=== PATIENT | male | born 1950 | race Caucasian/White ===

== ENCOUNTER 2016-05-31 06:59 | Day surgery (SDC) | payer MEDICARE, BC ==
[2016-05-31] MEDS ORDERED: Lactated Ringers 1,000 ML IV SCH (07:30)
[2016-05-31] MEDS ORDERED: fentaNYL 100 MCG/2 ML SDV ONE (07:55)
[2016-05-31] MEDS ORDERED: Midazolam 1 MG/ML 2 ML SDV ONE (07:55)
[2016-05-31] MEDS ORDERED: Propofol 200 MG/20 ML SDV ONE ×2 (07:55→08:32)
[2016-05-31 09:52] VITALS: BP 109/67
--- NOTE | 2016-05-31 12:48 | OR ---
DATE OF PROCEDURE: 05/31/2016 PREOPERATIVE DIAGNOSES: Nausea, history of colon polyps. POSTOPERATIVE DIAGNOSES: Nausea, history of colon polyps, small gastric polyps , right and left-sided colonic diverticulosis, small transverse colon polyp. PROCEDURE: 1. Esophagogastroduodenoscopy with biopsy resection of small gastric polyp. 2. Colonoscopy to the cecum with biopsy resection of small transverse colon polyp. ANESTHESIA: IV anesthesia with monitored anesthesia care. INDICATION: This 66-year-old white male is referred for upper and lower endoscopy. The indication for the upper endoscopy is nausea. The indication for the colonoscopy is a history of colon polyps. He says his last colonoscopic exam was done about nine years ago. I counseled him for the procedure including risks and alternatives, and he gave his informed consent to proceed. DESCRIPTION OF PROCEDURE: The patient was placed in the left lateral decubitus position. IV anesthesia was administered by the Anesthesia Service. Time-out was held. The flexible video Olympus upper endoscope was passed through his mouth, down his esophagus, and into his stomach. The scope was easily passed through the pylorus, into the duodenum , reaching its third portion. The scope was then slowly withdrawn examining the mucosa throughout. The duodenal mucosa appeared unremarkable. The scope was brought up through the pylorus. The antrum appeared unremarkable. The scope was retroflexed. He did have a small hiatal hernia seen. The scope was straightened in the main body of the stomach. We saw a small polyp, which was removed with the biopsy forceps. The scope was brought up through the GE junction, which other than the small hiatal hernia appeared unremarkable. The scope was then brought up through the unremarkable-appearing esophagus and was removed. Next, a rectal exam was performed, which was unremarkable. The flexible video Olympus colonoscope was introduced through his anus, up his rectum, out his colon, all the way to the cecum. We saw both right and left-sided diverticula. There was no bleeding nor inflammation associated with any of them. Once the cecum was reached, the scope was slowly withdrawn, examining the mucosa throughout. No additional mucosal abnormalities were noted until we reached the transverse colon. Here, we saw a small polyp, which was removed with the biopsy forceps. The scope was withdrawn further with no other additional lesions noted. The scope was retroflexed in the rectum with the distal rectum appearing unremarkable. The scope was straightened and removed. He tolerated the procedure well. Pavel Yang MD /[id number] MTDD
== END 2016-05-31 09:52 | disposition home or self-care (01) ==
LOC: JP.SDS 06:59
PROVIDERS: ATTEND Surgery
DX: Z12.11 Encounter for screening for malignant neoplasm of colon (principal); D12.3 Benign neoplasm of transverse colon; K29.50 Unspecified chronic gastritis without bleeding; K57.30 Diverticulosis of large intestine without perforation or abscess without bleeding; K44.9 Diaphragmatic hernia without obstruction or gangrene; Z88.8 Allergy status to other drugs, medicaments and biological substances
CPT/HCPCS: 43239; 45380; J2250; J2704; J3010; J7120; 88305; 88342

== ENCOUNTER 2019-06-04 07:15 | Day surgery (SDC) | payer BC, MEDICARE ==
[2019-06-04] MEDS ORDERED: fentaNYL 100 MCG/2 ML SDV ONE (07:19)
[2019-06-04] MEDS ORDERED: Midazolam 1 MG/ML 2 ML SDV ONE (07:19)
[2019-06-04] MEDS ORDERED: Propofol 200 MG/20 ML SDV ONE (07:19)
[2019-06-04] MEDS ORDERED: Sodium Chloride 0.9% 1,000 ML IV SCH (07:30)
[2019-06-04 10:44] VITALS: BP 99/69; PULSE 84
--- NOTE | 2019-06-04 13:48 | OR ---
DATE OF PROCEDURE: 06/04/2019 SURGEON: Portillo Castañeda MD PROCEDURE: Colonoscopy. FINDINGS: Diverticulosis, mild. COMPLICATIONS: None. BOTTLE MACHINE OPERATOR: None. PREOPERATIVE DIAGNOSIS: Screening colonoscopy. POSTOPERATIVE DIAGNOSIS: Screening colonoscopy. RISKS: Risks, benefits, alternatives, and limitations including, but not limited to infection, bleeding, and perforation were explained to the patient, who wished to proceed. PROCEDURE IN DETAIL: The patient was placed in left lateral decubitus position. Digital rectal exam was performed without any abnormality. Scope was introduced and advanced atraumatically up to the ileocecal valve. Scope was brought back through the ascending, transverse, descending colon, and retroflexed. No evidence of old or new blood. No masses. No polyps. No other abnormalities. The patient tolerated the procedure well. Portillo Castañeda MD /[id number]
== END 2019-06-04 09:45 | disposition home or self-care (01) ==
LOC: JP.SDS 07:15
PROVIDERS: ATTEND Surgery
DX: Z12.11 Encounter for screening for malignant neoplasm of colon (principal); K57.30 Diverticulosis of large intestine without perforation or abscess without bleeding
CPT/HCPCS: G0121; J2250; J2704; J3010; J7030

== ENCOUNTER 2019-09-07 20:43 | Emergency (ER) | payer MEDICARE ==
[2019-09-07 20:57] VITALS: BP 185/98; PULSE 85
--- NOTE | 2019-09-07 21:08 | EDM.PDOC ---
ED HPI GENERAL MEDICAL PROBLEM - General Chief Complaint: Respiratory Problem Stated Complaint: TROUBLE BREATHING Time Seen by Provider: 09/07/19 21:05 Source of Information: Reports: Patient, Old Records, RN History Limitations: Reports: No Limitations - History of Present Illness INITIAL COMMENTS - FREE TEXT/NARRATIVE: 69 yo male presents with several days of progressive SOB associated with some wheezing and chest tightness. No fever. Cough occasionally productive of small volumes of yellow sputum. Has been worked up by the clinic and given antibiotics which helped just a little initially, but not now. Had a CT of his abd/pelvis and chest yesterday per the clinic that showed possible prostate CA and mild chronic lung changes. Quit smoking in the 80's after about a 25 pack yr hx of smoking. Onset: Gradual Duration: Week(s): (2+), Getting Worse Location: Reports: Chest Quality: Reports: Other (mild tightness) Severity: Mild Improves with: Reports: None Worsens with: Reports: Other (time?) Context: Reports: Other (See HPI) Associated Symptoms: Reports: Cough, Shortness of Breath. Denies: Fever/Chills Treatments DESIGN SUPERVISOR: Reports: Other (see below) (antibiotic) - Related Data Allergies Allergy/AdvReac Type Severity Reaction Status Date / Time amlodipine [From Norvasc] AdvReac Nausea Verified 09/07/19 20:53 metoprolol [From Toprol XL] AdvReac Nausea Verified 09/07/19 20:53 Home Meds: Home Meds Citalopram Hydrobromide [Celexa] 10 mg PO DAILY 05/31/19 [History] Folic Acid 1 mg PO DAILY 05/31/19 [History] Losartan [Cozaar] 25 mg PO DAILY 05/31/19 [History] Albuterol Sulfate [Albuterol Sulfate Hfa] 1 puff INH Q4H PRN 09/07/19 [History] Albuterol/Ipratropium [DuoNeb 3.0-0.5 MG/3 ML] 3 ml NEB QID PRN #60 neb 09/07/19 [Rx] Amoxicillin/Potassium Clav [Amox Tr-K Clv 875-125 mg Tab] 1 each PO BID 09/07/19 [History] Tamsulosin HCl 1 cap PO DAILY 09/07/19 [History] predniSONE [Prednisone] 20 mg PO BID #12 tablet 09/07/19 [Rx] Past Medical History HEENT History: Reports: Impaired Vision Cardiovascular History: Reports: Hypertension Gastrointestinal History: Reports: Colon Polyp Genitourinary History: Reports: Prostate Disorder Musculoskeletal History: Reports: Arthritis, Fracture Neurological History: Reports: Migraines Psychiatric History: Reports: Anxiety, Depression Dermatologic History: Reports: None - Infectious Disease History Infectious Disease History: Reports: Measles, Mumps - Past Surgical History GI Surgical History: Reports: Colonoscopy Male Surgical History: Reports: Vasectomy Neurological Surgical History: Reports: Scoliosis Musculoskeletal Surgical History: Reports: Arthroscopic Knee, Carpal Tunnel, Other (See Below) Other Musculoskeletal Surgeries/Procedures:: left knee bursa removed Social & Family History - Family History Family Medical History: Noncontributory - Tobacco Use Smoking Status *Q: Former Smoker Used Tobacco, but Quit: Yes Month/Year Tobacco Last Used: 1980 Tobacco Use Comment: quit smoking in 1980, uses occasional snuff - Caffeine Use Caffeine Use: Reports: Coffee - Alcohol Use Days Per Week of Alcohol Use: 7 Number of Drinks Per Day: 3 Total Drinks Per Week: 21 - Recreational Drug Use Recreational Drug Use: No ED ROS GENERAL - Review of Systems Review Of Systems: See Below Constitutional: Reports: No Symptoms HEENT: Reports: No Symptoms Respiratory: Reports: Shortness of Breath, Wheezing, Cough, Sputum (minimal yellow) Cardiovascular: Reports: No Symptoms GI/Abdominal: Reports: No Symptoms : Reports: No Symptoms Musculoskeletal: Reports: No Symptoms Skin: Reports: No Symptoms Neurological: Reports: No Symptoms ED EXAM, GENERAL - Physical Exam Exam: See Below Exam Limited By: No Limitations General Appearance: Alert, WD/WN, No Apparent Distress Eye Exam: Bilateral Eye: Normal Inspection Ears: Normal External Exam, Normal Canal, Hearing Grossly Normal, Normal TMs Ear Exam: Bilateral Ear: Auricle Normal, Canal Normal, TM normal Nose: Normal Inspection, No Blood Throat/Mouth: Normal Inspection, Normal Lips, Normal Oropharynx, Normal Voice, No Airway Compromise Head: Atraumatic, Normocephalic Neck: Normal Inspection Respiratory/Chest: No Respiratory Distress, No Accessory Muscle Use, Wheezing, Other (mild tachypnea). No: Lungs Clear, Normal Breath Sounds, Respiratory Distress, Crackles Cardiovascular: Regular Rate, Rhythm, No Edema Extremities: Normal Inspection, Normal Range of Motion, Non-Tender, No Pedal Edema Neurological: Alert, Oriented, CN II-XII Intact, Normal Cognition, No Motor/Sensory Deficits Psychiatric: Normal Affect, Normal Mood Skin Exam: Warm, Dry, Intact, Normal Color, No Rash Course - Vital Signs Last Recorded V/S: Last Vital Signs Temp 35.4 C L 09/07/19 20:55 Pulse 85 09/07/19 20:55 Resp 24 H 09/07/19 20:55 BP 185/98 H 09/07/19 20:55 Pulse Ox 95 09/07/19 20:55 - Orders/Labs/Meds Orders: Active Orders 24 hr Category Date Time Status RT Aerosol Therapy [RC] ASDIRECTED Care 09/07/19 21:10 Active Meds: Medications Discontinued Medications Generic Name Dose Route Start Last Admin Trade Name Mg PRN Reason Stop Dose Admin Albuterol/Ipratropium 3 ml 09/07/19 21:10 09/07/19 21:25 Duoneb 3.0-0.5 Mg/3 Ml NEB 09/07/19 21:11 3 ml ONETIME ONE Administration - Re-Assessments/Exams Free Text/Narrative Re-Assessment/Exam: 09/07/19 21:46 Much better after Duoneb Departure - Departure Time of Disposition: 21:55 Disposition: Home, Self-Care 01 Condition: Fair Clinical Impression: Bronchospasm - Discharge Information *PRESCRIPTION DRUG MONITORING PROGRAM REVIEWED*: Not Applicable *COPY OF PRESCRIPTION DRUG MONITORING REPORT IN PATIENT EDGARDO: Not Applicable Instructions: Bronchospasm, Adult, [id number] Referrals: Tomas Gongora FORENSIC INVESTIGATOR [Primary Care Provider] - Forms: ED Department Discharge Additional Instructions: Use prednisone and Duonebs as directed. You may continue the antibiotic, but stop after you have taken this med for 7 days. Recheck in the clinic in a week. Return if worse. Avoid smoke exposure. Use cetirizine 10 mg daily as needed for sneezing and nasal congestion. Sepsis Event Note (ED) - Evaluation Sepsis Screening Result: No Definite Risk - Focused Exam Vital Signs: Vital Signs Temp Pulse Resp BP Pulse Ox 09/07/19 20:55 35.4 C L 85 24 H 185/98 H 95 - My Orders Last 24 Hours: My Active Orders 09/07/19 21:10 RT Aerosol Therapy [RC] ASDIRECTED - Assessment/Plan Last 24 Hours: My Active Orders 09/07/19 21:10 RT Aerosol Therapy [RC] ASDIRECTED
[2019-09-07] MEDS ORDERED: Albuterol/Ipratropium 3.0-0.5 MG/3 ML Neb Soln NEB ONE (21:10)
[2019-09-07] MEDS ORDERED: predniSONE 20 MG Tab PO STA (21:49)
== END 2019-09-07 22:15 | disposition home or self-care (01) ==
LOC: JP.ED 20:43
DX: J98.01 Acute bronchospasm (principal); I10 Essential (primary) hypertension; F41.9 Anxiety disorder, unspecified; F32.9 Major depressive disorder, single episode, unspecified; Z87.891 Personal history of nicotine dependence; Z79.899 Other long term (current) drug therapy; Z88.8 Allergy status to other drugs, medicaments and biological substances
CPT/HCPCS: 94640; 99283; 99284; J7512; J7620-GY

== ENCOUNTER 2021-05-02 22:27 | Emergency (ER) | payer MEDICARE ==
[2021-05-02 23:44] LABS: CORONAVIRUS COVID-19 NAA POSITIVE (NEGATIVE)
[2021-05-03] MEDS ORDERED: Furosemide 40 MG/4 ML VIAL IVPUSH ONE (00:03)
[2021-05-03] MEDS ORDERED: Amiodarone 200 MG Tab PO ONE (00:28)
[2021-05-03] MEDS ORDERED: LORazepam 2 MG/ML SDV IVPUSH STA (01:09)
[2021-05-03] MEDS ORDERED: Dexamethasone 4 MG/ML SDV IVPUSH STA (01:09)
[2021-05-03] MEDS ORDERED: Amiodarone 150 MG/3 ML SDV IV ONE (01:27)
[2021-05-03] MEDS ORDERED: Dextrose 5% in Water 250 ML ONE (01:43)
[2021-05-03 02:42] VITALS: BP 109/59; PULSE 129
[2021-05-03] MEDS ORDERED: cefTRIAXone 2 GM, Lidocaine 1% 4.2 ML IM ONE ×2 (03:06)
[2021-05-03] MEDS: cefTRIAXone 1 GM Vial ONE ×2 (03:16→03:18)
== END 2021-05-03 03:15 ==
LOC: JP.ED 22:27
DX: U07.1 COVID-19 (principal); I48.20 Chronic atrial fibrillation, unspecified; I11.0 Hypertensive heart disease with heart failure; I50.41 Acute combined systolic (congestive) and diastolic (congestive) heart failure; R06.02 Shortness of breath; D68.9 Coagulation defect, unspecified; Z79.01 Long term (current) use of anticoagulants; Z79.899 Other long term (current) drug therapy; Z88.8 Allergy status to other drugs, medicaments and biological substances
CPT/HCPCS: 0241U; 36415; 71045; 80053; 82803; 83605; 83735; 83880; 84484; 85025; 86140; 93005; 93010; 96372; 96374; 96375; 99285; A9270; J0282; J0696; J1100; J1940; J2060; J7060

== ENCOUNTER 2024-04-17 13:34 | Inpatient (IN) | payer MEDICARE ==
[2024-04-17] MEDS ORDERED: Ondansetron 4 MG/2 ML SDV IV PRN (14:10)
[2024-04-17] MEDS ORDERED: LORazepam 2 MG/ML SDV IV PRN (14:10)
[2024-04-17] MEDS ORDERED: Albuterol 0.083% 2.5 MG/3 ML Neb Soln NEB PRN (14:10)
[2024-04-17] MEDS ORDERED: Polyethylene Glycol 3350 Powder 17 GM Packet PO PRN (14:10)
[2024-04-17] MEDS ORDERED: Sodium Chloride 0.9% 10 ML Syringe FLUSH PRN (14:10)
[2024-04-17] MEDS ORDERED: Acetaminophen 325 MG Tab PO PRN (14:10)
[2024-04-17] MEDS ORDERED: LORazepam 2 MG/ML SDV IM SCH (14:15)
[2024-04-17] MEDS ORDERED: Albuterol/Ipratropium 3.0-0.5 MG/3 ML Neb Soln NEB PRN (14:27)
[2024-04-17] MEDS: Iopamidol 612 MG/ML 100 ML Bottle IV PRN (15:07)
[2024-04-17] MEDS: Sodium Chloride 0.9% 80 ML IV ONE (15:07)
[2024-04-17] MEDS: Sodium Chloride 0.9% 10 ML Syringe FLUSH PRN (15:07)
[2024-04-17] MEDS: Sodium Chloride 0.9% 1,000 ML IV SCH (15:47)
[2024-04-17] MEDS: Montelukast 10 MG Tab PO SCH (15:59)
[2024-04-17] MEDS: FLUoxetine 20 MG Cap PO SCH (15:59)
[2024-04-17] MEDS: Folic Acid 1 MG Tab PO SCH (15:59)
[2024-04-17] MEDS: Gabapentin 400 MG Cap PO ONE (16:00)
[2024-04-17] MEDS: Pantoprazole 40 MG Tab.CR PO SCH (16:02)
[2024-04-17] MEDS: Multivitamins with Iron Tab.Chew CHEW SCH (16:07)
[2024-04-17] MEDS ORDERED: Montelukast 10 MG Tab PO SCH (17:00)
[2024-04-17] MEDS ORDERED: LORazepam 1 MG Tab PO PRN (17:07)
[2024-04-17] MEDS: LORazepam 2 MG/ML SDV IV SCH (18:42)
[2024-04-17] MEDS: Thiamine 100 MG Tab PO SCH (21:35)
[2024-04-17] MEDS: Apixaban 5 MG Tab PO SCH (21:36)
[2024-04-17] MEDS: LORazepam 1 MG Tab PO PRN (21:36)
[2024-04-17] MEDS: Gabapentin 300 MG Cap PO SCH (21:36)
[2024-04-18 06:00] LABS: HEMOGLOBIN 10.7 g/dL (12.9-16.9); MEAN CORPUSCULAR HEMOGLOBIN 35.7 pg (31.6-35.5); MEAN CORPUSCULAR HGB CONC 35.7 g/dL (31.6-35.5); WHITE BLOOD CELL COUNT,WBC 3.9 K/uL (3.2-11.0)
[2024-04-18 06:22] LABS: A/G RATIO 1.1 (1.2-2.2); ALANINE AMINOTRANSFERASE,ALT 144 U/L (12-78); ALBUMIN 2.8 g/dL (3.4-5.0); ALKALINE PHOSPHATASE 72 U/L (46-116); ANION GAP 13.3 mmol/L (5.0-14.0); ASPARTATE AMNIOTRANSFERASE,AST 115 U/L (15-37); BILIRUBIN DIRECT 0.67 mg/dL (0.0-0.2); BILIRUBIN TOTAL 1.8 mg/dL (0.2-1.0); BLOOD UREA NITROGEN,BUN 20 mg/dL (7-18); CALCIUM 7.6 mg/dL (8.5-10.1); CARBON DIOXIDE,CO2 27 mmol/L (21-32); CHLORIDE,CL 101 mmol/L (100-108); CREATININE 0.9 mg/dL (0.8-1.3); EST CRCL DRUG DOSING (CG) 72.53 mL/min; ESTIMATED GFR 90 mL/min (>60); GLUCOSE RANDOM 86 mg/dL (74-106); MAGNESIUM 1.2 mg/dL (1.8-2.4); POTASSIUM,K 3.3 mmol/L (3.6-5.2); PROTEIN TOTAL,TP 5.4 g/dL (6.4-8.2); SODIUM,NA 138 mmol/L (140-148)
[2024-04-18] MEDS: Metoprolol Tartrate 25 MG Tab PO SCH (08:22)
[2024-04-18] MEDS: Magnesium Oxide 400 MG Tab PO SCH ×2 (08:23→08:32)
[2024-04-18] MEDS: Losartan 25 MG Tab PO SCH (08:23)
[2024-04-18] MEDS: Potassium Chloride 20 MEQ Tab.ER PO ONE (08:26)
[2024-04-18] MEDS ORDERED: Non-Formulary Medication 1 Each (Magnesium Oxide [Magnesium] 400 MG Capsule) PO SCH (09:00)
[2024-04-18] MEDS ORDERED: MONTELUKAST SODIUM 4 MG PO SCH (09:00)
[2024-04-18] MEDS: Magnesium Sulfate/Water Premix 2 GM in Premix Bag 1 BAG IV SCH (09:17)
[2024-04-18] MEDS: LORazepam 1 MG Tab PO PRN (12:37)
[2024-04-18] MEDS: LORazepam 2 MG/ML SDV IVPUSH ONE (16:31)
[2024-04-18] MEDS: Nicotine 14 MG/24 Hr Patch TRDERM SCH (16:51)
[2024-04-18] MEDS: Nicotine Polacrilex 2 MG Gum CHEW PRN (17:08)
[2024-04-18] MEDS ORDERED: PHENobarbitaL sodium 260 MG in Sodium Chloride 0.9% 100 ML IV PRN (17:30)
[2024-04-18] MEDS: PHENobarbitaL sodium 260 MG in Sodium Chloride 0.9% 100 ML IV ONE (17:33)
[2024-04-18] MEDS: LORazepam 2 MG/ML SDV IV PRN (17:51)
[2024-04-18] MEDS: Sodium Chloride 0.9% 1,000 ML IV SCH (19:00)
[2024-04-18] MEDS: PHENobarbital Sodium 65 MG/ML SDV IVPUSH PRN (20:47)
[2024-04-19 05:57] LABS: HEMATOCRIT 32.5 % (38.4-49.7); HEMOGLOBIN 11.3 g/dL (12.9-16.9); MEAN CORPUSCULAR HEMOGLOBIN 35.2 pg (31.6-35.5); MEAN CORPUSCULAR HGB CONC 34.8 g/dL (31.6-35.5); MEAN CORPUSCULAR VOLUME 101.2 fL (81.4-99.0); RED BLOOD CELL COUNT 3.21 M/uL (4.14-5.76); WHITE BLOOD CELL COUNT,WBC 4.5 K/uL (3.2-11.0)
[2024-04-19 06:17] LABS: ALANINE AMINOTRANSFERASE,ALT 120 U/L (12-78); ALBUMIN 2.9 g/dL (3.4-5.0); ALKALINE PHOSPHATASE 80 U/L (46-116); ASPARTATE AMNIOTRANSFERASE,AST 81 U/L (15-37); BLOOD UREA NITROGEN,BUN 17 mg/dL (7-18); CALCIUM 7.7 mg/dL (8.5-10.1); CARBON DIOXIDE,CO2 28 mmol/L (21-32); CHLORIDE,CL 104 mmol/L (100-108); CREATININE 0.9 mg/dL (0.8-1.3); EST CRCL DRUG DOSING (CG) 74.53 mL/min; ESTIMATED GFR 90 mL/min (>60); GLUCOSE RANDOM 95 mg/dL (74-106); MAGNESIUM 1.8 mg/dL (1.8-2.4); POTASSIUM,K 3.5 mmol/L (3.6-5.2); PROTEIN TOTAL,TP 5.7 g/dL (6.4-8.2); SODIUM,NA 140 mmol/L (140-148)
[2024-04-19 06:19] LABS: ANION GAP 11.5 mmol/L (5.0-14.0)
[2024-04-19] MEDS: Potassium Chloride 20 MEQ Tab.ER PO ONE ×2 (08:55→16:28)
[2024-04-19 18:20] LABS: ALPHA-1-ANTITRYPSIN 117 mg/dL (90-200)
[2024-04-19 18:34] LABS: HEPATITIS BE ANTIGEN Negative (Negative)
[2024-04-19 19:11] LABS: HEPATITIS B SURFACE ANTIBODY <3.10 IU/L
[2024-04-19 19:52] LABS: HEPATITIS B CORE ANTIBODY,IGM Negative (Negative)
[2024-04-19 19:57] LABS: HEPATITIS A ANTIBODY, IGM Negative (Negative); HEPATITIS B CORE ANTIBODY, IGM Negative (Negative); HEPATITIS B SURFACE ANTIGEN Negative (Negative); HEPATITIS C AB CIA INTERP Negative (Negative); HEPATITIS C ANTIBODY CIA INDEX 0.15 IV
[2024-04-19 20:27] LABS: CERULOPLASMIN 14 mg/dL (15-30)
[2024-04-19 21:20] LABS: ANTI-NUCLEAR AB ANA,IGG ELISA None Detected (None Detected)
[2024-04-19] MEDS: Gabapentin 400 MG Cap PO SCH (21:42)
[2024-04-20 06:02] LABS: HEMATOCRIT 34.5 % (38.4-49.7); HEMOGLOBIN 12.2 g/dL (12.9-16.9); MEAN CORPUSCULAR HEMOGLOBIN 36.3 pg (31.6-35.5); MEAN CORPUSCULAR HGB CONC 35.4 g/dL (31.6-35.5); MEAN CORPUSCULAR VOLUME 102.7 fL (81.4-99.0); RED BLOOD CELL COUNT 3.36 M/uL (4.14-5.76); WHITE BLOOD CELL COUNT,WBC 5.9 K/uL (3.2-11.0)
[2024-04-20 06:22] LABS: A/G RATIO 0.9 (1.2-2.2); ALANINE AMINOTRANSFERASE,ALT 106 U/L (12-78); ALBUMIN 2.9 g/dL (3.4-5.0); ALKALINE PHOSPHATASE 87 U/L (46-116); ASPARTATE AMNIOTRANSFERASE,AST 62 U/L (15-37); BLOOD UREA NITROGEN,BUN 12 mg/dL (7-18); CALCIUM 8.3 mg/dL (8.5-10.1); CARBON DIOXIDE,CO2 30 mmol/L (21-32); CHLORIDE,CL 102 mmol/L (100-108); CREATININE 0.9 mg/dL (0.8-1.3); EST CRCL DRUG DOSING (CG) 70.13 mL/min; ESTIMATED GFR 90 mL/min (>60); GLUCOSE RANDOM 89 mg/dL (74-106); POTASSIUM,K 4.2 mmol/L (3.6-5.2); PROTEIN TOTAL,TP 6.1 g/dL (6.4-8.2); SODIUM,NA 138 mmol/L (140-148)
[2024-04-20 06:23] LABS: ANION GAP 10.2 mmol/L (5.0-14.0)
[2024-04-20 10:45] LABS: FACTIN SMOOTH MUSCLE,IGG ELISA 7 Units (0-19); MITOCHONDRIAL (M2) AB,IGG 4.5 Units (0.0-24.9)
[2024-04-20] MEDS ORDERED: Metoprolol Tartrate 5 MG/5 ML SDV IVPUSH PRN (18:57)
[2024-04-20] MEDS: Sodium Chloride 0.9% 1,000 ML IV SCH (20:11)
[2024-04-21] MEDS: Gabapentin 400 MG Cap PO SCH (00:33)
[2024-04-21 06:15] LABS: CALCIUM 8.1 mg/dL (8.5-10.1); CREATININE 0.9 mg/dL (0.8-1.3); EST CRCL DRUG DOSING (CG) 74.53 mL/min; POTASSIUM,K 4.2 mmol/L (3.6-5.2)
[2024-04-21 06:22] LABS: ANION GAP 13.2 mmol/L (5.0-14.0)
[2024-04-21] MEDS: Gabapentin 300 MG Cap PO SCH (22:55)
[2024-04-23] MEDS: Gadoteridol 279.3 MG/ML 20 ML SDV IV SCH (11:04)
[2024-04-24 08:12] LABS: HEMATOCRIT 34.5 % (38.4-49.7); HEMOGLOBIN 11.9 g/dL (12.9-16.9); MEAN CORPUSCULAR HEMOGLOBIN 35.2 pg (31.6-35.5); MEAN CORPUSCULAR HGB CONC 34.5 g/dL (31.6-35.5); MEAN CORPUSCULAR VOLUME 102.1 fL (81.4-99.0); RED BLOOD CELL COUNT 3.38 M/uL (4.14-5.76); WHITE BLOOD CELL COUNT,WBC 3.8 K/uL (3.2-11.0)
[2024-04-24 08:32] LABS: A/G RATIO 0.8 (1.2-2.2); ALANINE AMINOTRANSFERASE,ALT 62 U/L (12-78); ALBUMIN 3.1 g/dL (3.4-5.0); ALKALINE PHOSPHATASE 85 U/L (46-116); ASPARTATE AMNIOTRANSFERASE,AST 36 U/L (15-37); BILIRUBIN TOTAL 0.8 mg/dL (0.2-1.0); BLOOD UREA NITROGEN,BUN 16 mg/dL (7-18); CALCIUM 8.7 mg/dL (8.5-10.1); CARBON DIOXIDE,CO2 28 mmol/L (21-32); CHLORIDE,CL 100 mmol/L (100-108); EST CRCL DRUG DOSING (CG) 64.86 mL/min; ESTIMATED GFR 79 mL/min (>60); GLUCOSE RANDOM 92 mg/dL (74-106); POTASSIUM,K 4.1 mmol/L (3.6-5.2); PROTEIN TOTAL,TP 6.8 g/dL (6.4-8.2); SODIUM,NA 138 mmol/L (140-148)
[2024-04-24 08:33] LABS: ANION GAP 14.1 mmol/L (5.0-14.0)
[2024-04-24] MEDS: Loratadine 10 MG Tab PO SCH (21:29)
[2024-04-25 08:32] VITALS: BP 122/81; PULSE 88
== END 2024-04-25 11:25 | DRG 897 ==
LOC: JP.ICU 13:34 → JP.MS 04-24 21:50
PROVIDERS: ADMIT Hospitalist; ATTEND Internal Medicine
DX: F10.931 Alcohol use, unspecified with withdrawal delirium (principal); F32.2 Major depressive disorder, single episode, severe without psychotic features; I48.20 Chronic atrial fibrillation, unspecified; Z66 Do not resuscitate; H91.90 Unspecified hearing loss, unspecified ear; H54.7 Unspecified visual loss; I10 Essential (primary) hypertension; J45.909 Unspecified asthma, uncomplicated; M19.90 Unspecified osteoarthritis, unspecified site; F41.9 Anxiety disorder, unspecified; M41.9 Scoliosis, unspecified; I49.5 Sick sinus syndrome; K70.10 Alcoholic hepatitis without ascites; E87.6 Hypokalemia; Z79.899 Other long term (current) drug therapy; Z88.8 Allergy status to other drugs, medicaments and biological substances; Z98.890 Other specified postprocedural states; Z79.01 Long term (current) use of anticoagulants; Z90.79 Acquired absence of other genital organ(s)
CPT/HCPCS: 36415; 70553; 70553-26; 74177; 74177-26; 80048; 80053; 80074; 82103; 82248; 82390; 83735; 85027; 86015; 86038; 86381; 86705; 86706; 87350; 96125-GO; 97110-GO; 97110-GP; 97162-GP; 97165-GO; 97530-GP; 97535-GO; 99223; 99232; 99233; 99239; A9270-GY; A9579; J2060; J2560; J3475; J7030; Q9967